=== PATIENT | male | born 1955 | race Two or more races ===

== ENCOUNTER 2024-05-31 12:46 | Emergency (ER) | payer OTHER ==
[~2024-05-31] VITALS: Ht 180.3 cm; Wt 113.6 kg
--- NOTE | 2024-05-31 14:00 | ED.PDOC ---
History of Present Illness HPI Comments 68 y/o M, with a history of DM, ESRD w/PD catheter, HTN, PTCA, and obesity, is BIBA for c/o penile pain, itchiness, and discharge, today. Per EMS report, patient endorses on having persisting symptoms since unprovoked onset on 05/20/24. Patient was commented to have been evaluated and discharged from [facility] with a topical "cream," that he endorses on having no relief or improvement of symptoms with use, during earlier duration of symptoms. He was also noted to have been found with a blood glucose of 229 and was given 1g Tylenol, with all remaining vitals being stable and within normal limits. He denies having any hematuria, fever, chills, or other associated symptoms or modifiers at time of initial assessment. Chief Complaint: Penile Problem Time Seen by MD: 13:20 Reviewed Notes: Nurses Notes, Aml Analyst Notes, Medications, Allergies Allergies: Coded Allergies: NO KNOWN ALLERGIES (Unverified , 05/31/24) Information Source: Patient, Emergency Med Personnel Mode of Arrival: EMS Severity: Moderate Timing: Days Duration: Since onset Prehospital treatment: 12 Lead EKG, Accucheck (229), Sap Hana Architect, Pain Meds (1g tylenol) Past Medical History PAST MEDICAL HISTORY: DM, ESRD, HTN Past Medical History (Other): obesity Surgical History: PTCA Surgical History (Other): PD catheter Family History Family History: Unknown Social History Smoker: Non-Smoker Alcohol: Denies ETOH Use Drugs: Denies Drug Use Lives In: Home Genitourinary: reports: penile discharge, pain (penile pain), others (penile itchiness ) All Other Systems: Reviewed and Negative (negative unless otherwise stated above or in HPI) Physical Exam General Appearance: No Apparent Distress, Obese HEENT: Normal ENT Inspection, Pharynx Normal, TMs Normal Neck: Full Range of Motion, Non-Tender, Normal, Normal Inspection Respiratory: Chest Non-Tender, Lungs Clear, No Accessory Muscle Use, No Respiratory Distress, Normal Breath Sounds Cardiovascular: No Edema, No JVD, No Murmur, No Gallop, Normal Peripheral Pulses, Regular Rate/Rhythm Breast Exam: Deferred Gastrointestinal: No Organomegaly, Non Tender, No Pulsatile Mass, Normal Bowel Sounds, Soft Genitalia: Penis (yellow fibrinous discharge, with distal tip of the penis eschar) Pelvic: Deferred Rectal: Deferred Extremities: No calf tenderness, Normal capillary refill, Normal inspection, Normal range of motion, Non-tender, No pedal edema Musculoskeletal : Apperance: Normal Neurologic: Alert, head refrigeration engineer II-XII nml as Tested, No Motor Deficits, Normal Affect, Normal Mood, No Sensory Deficits Cerebellar Function: Normal Reflexes: Normal Skin: Dry, Normal Color, Warm Lymphatic: No Adenopathy Was a procedure done? Was a procedure done?: No Differential Dx Considerations may include: STI's, UTI, urethritis, balanitis, Estelle's Gangrene, phimosis, paraphimosis X-Ray, Labs, Meds, VS Vital Signs Date Time Temp Pulse Resp B/P (MAP) Pulse Ox O2 Delivery O2 Flow Rate FiO2 05/31/24 18:23 97.2 68 12 104/59 (74) 97 97.2 05/31/24 17:09 67 16 97 Room Air* 0 21 05/31/24 16:36 67 16 97 Room Air 05/31/24 16:36 98.1 67 16 96/56 (69) 97 98.1 05/31/24 13:10 102.9 70 18 130/62 (84) 96 Lab Test 05/31/24 15:34 05/31/24 00:00 Range/Units White Blood Count 14.3 H 4.4-10.8 10^3/uL Red Blood Count 3.02 L 4.5-5.90 10^6/uL Hemoglobin 9.2 L 13.5-17.5 g/dL Hematocrit 28.8 L 41.0-53.0 % Mean Corpuscular Volume 95.5 80.0-100.0 fL Mean Corpuscular Hemoglobin 30.5 28.0-32.0 pg Mean Corpuscular Hemoglobin Concent 31.9 L 32.0-36.0 g/dL Red Cell Distribution Width 17.8 H 11.8-14.3 % Platelet Count 333 140-450 10^3/uL Mean Platelet Volume 9.5 6.9-10.8 fL Neutrophils (%) (Auto) 78.5 37.0-80.0 % Lymphocytes (%) (Auto) 7.3 L 10.0-50.0 % Monocytes (%) (Auto) 9.3 0.0-12.0 % Eosinophils (%) (Auto) 4.4 0.0-7.0 % Basophils (%) (Auto) 0.5 0.0-2.0 % Neutrophils # (Auto) 11.2 H 1.6-8.6 10 ^3/uL Lymphocytes # (Auto) 1.0 0.4-5.4 10 ^3/uL Monocytes # (Auto) 1.3 0-1.3 10 ^3/uL Eosinophils # (Auto) 0.6 0-0.8 10 ^3/uL Basophils # (Auto) 0.1 0-0.2 10 ^3/uL Nucleated Red Blood Cells 0.0 % Sodium Level 133 L 136-145 mmol/L Potassium Level 4.0 3.5-5.1 mmol/L Chloride Level 92 L 98-107 mmol/L Carbon Dioxide Level 25 20-31 mmol/L Anion Gap 16 H 5-15 Blood Urea Nitrogen 57 H 9-23 mg/dL Creatinine 9.58 H 0.700-1.30 mg/dL Glomerular Filtration Rate Calc 5 >90 mL/min BUN/Creatinine Ratio 5.9 L 10.0-20.0 Serum Glucose 186 H 74-106 mg/dL Calcium Level 7.1 L 8.7-10.4 mg/dL Influenza Type A Antigen Pending Influenza Type B Antigen Pending SARS-CoV-2 Antigen (Rapid) Pending Current Medications Medications (Trade) Dose Ordered Sig/Karen Route Start Time Stop Time Status Last Admin Piperacillin Sod/ Tazobactam Sod 50 ml @ 50 mls/hr ONCE ONCE IV 05/31/24 15:15 05/31/24 16:43 DC 05/31/24 17:02 Time of 1ST Reevaluation: 13:50 Reevaluation 1ST: Unchanged Time of 2ND Reevaluation: 15:18 Reevaluation 2ND: Unchanged (i updated [facility]#[id number], Dr Al) Time of 3RD Reevaluation: 17:08 Reevaluation 3RD: Unchanged (I updated Dr Al at [facility] again) Patient Education/Counseling: Diagnosis, Treatment Family Education/Counseling: No Family Present Additional Information - Additional information was gathered from interviewing the following independent 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 we attempted to call our urologist, without success to get a response pt does not have fourenier's gangrene, nor pneumonia, cellulitis. he has balanitis. i will start him on antibiotic, since antifungal has not helped Departure 1 Departure Time of Disposition: 18:52 Impression: Primary Impression: Balanitis Disposition: HOME / SELF CARE / HOMELESS Condition: Good e-Prescriptions Mupirocin Calcium (Topical) (MUPIROCIN) 2 % Cre 2 % EX BID, #1 CRE Prov: RAMSES SQUIRES MD 05/31/24 Discharged With: Self Critical Care Note Critical Care Time?: No Stability Stability form required: No Heart Score Heart Score: Heart Score Response (Comments) Value History N/A 0 EKG N/A 0 Age N/A 0 Risk Factors N/A 0 Troponin N/A 0 Total 0 I personally scribed for RAMSES SQUIRES MD ([email or web address]) on 05/31/24 at 14:00. Electronically submitted by Osbaldo rGay ([email or web address]). RAMSES SQUIRES MD May 31, 2024 14:00
[2024-05-31 16:02] LABS: Basophils # (auto) 0.1 10 ^3/uL (0-0.2); Basophils % (auto) 0.5 % (0.0-2.0); Eosinophils # (auto) 0.6 10 ^3/uL (0-0.8); Eosinophils % (auto) 4.4 % (0.0-7.0); Hematocrit 28.8 % (41.0-53.0); Hemoglobin 9.2 g/dL (13.5-17.5); Lymphocytes % (auto) 7.3 % (10.0-50.0); Mean Corpuscular Hemoglobin 30.5 pg (28.0-32.0); Mean Corpuscular Hgb Conc. 31.9 g/dL (32.0-36.0); Mean Corpuscular Volume 95.5 fL (80.0-100.0); Monocytes # (auto) 1.3 10 ^3/uL (0-1.3); Monocytes % (auto) 9.3 % (0.0-12.0); Neutrophils # (auto) 11.2 10 ^3/uL (1.6-8.6); Neutrophils % (auto) 78.5 % (37.0-80.0); Platelet Count (auto) 333 10^3/uL (140-450); Red Blood Cells 3.02 10^6/uL (4.5-5.90); Red Cell Distribution Width 17.8 % (11.8-14.3); White Blood Cell 14.3 10^3/uL (4.4-10.8)
[2024-05-31 16:08] LABS: Anion Gap 16 (5-15); Carbon Dioxide 25 mmol/L (20-31)
[2024-05-31 16:13] LABS: BUN/Creatinine Ratio 5.9 (10.0-20.0)
[2024-05-31 16:15] LABS: Blood Urea Nitrogen 57 mg/dL (9-23); Calcium 7.1 mg/dL (8.7-10.4); Chloride 92 mmol/L (98-107); Glucose 186 mg/dL (74-106); Sodium 133 mmol/L (136-145)
--- NOTE | 2024-05-31 16:58 | DVH ---
CHEST RADIOGRAPH Indication: LEUKOCYTOSIS Technique: Single frontal view of the chest was obtained Comparison: None FINDINGS: Lines and Tubes: None Lungs: No focal consolidation. Pleura: No effusion.No pneumothorax. Cardiomediastinal contours: Unremarkable Pulmonary vasculature: Within normal limits. Bones: No acute osseous abnormality. IMPRESSION: 1. No acute cardiopulmonary disease. HS:Y
[2024-05-31] MEDS: PIPERACILLIN-TAZOB 2.25GM 50 ML IV ONE (17:02)
--- NOTE | 2024-05-31 17:04 | DVH ---
Procedure: CT PELVIS WO CONTRAST 05/31/2024 04:35 PM Indication: R/O FOURNEIR'S Comparison Study: None Technique: Axial images were obtained and reformatted in coronal and sagittal planes. All CT scans at this medical facility are performed using dose modulation techniques as appropriate t o a performed exam including the following: Automated exposure control was utilized; adjustment of th e MA and/or KV according to patient size; and use of iterative reconstruction technique. CT Dose: CTDI volume is 24.65 mGy. Dose-length product is 1085.5 mGy*cm FINDINGS: No peroneal subcutaneous fat stranding, gas or foreign body seen. No hydrocele noted. There is mild s crotal wall thickening. Diffuse atherosclerotic calcification noted. Prostate is mildly enlarged. U rinary bladder is unremarkable. Scattered colonic diverticula are seen. A peritoneal dialysis gutierrez ter is coiled superior to the bladder. Subcutaneous fat stranding in the bilateral lower quadrant ab dominal wall reflecting injection sites. Transpedicular fixation noted in the lower lumbar spine luce ncy surrounding L5 screws reflecting loosening. There is laminectomy in the lower lumbar spine. IMPRESSION: 1. No CT evidence of gold gangrene. No signs of cellulitis, subcutaneous edema or soft tissue gas . 2. Advanced atherosclerotic disease.
[2024-05-31 17:09] VITALS: PULSE 67; RESP 16; O2SAT 97
[2024-05-31 18:23] VITALS: BP 104/59; PULSE 68; RESP 12; TEMP 97.2; O2SAT 97
[2024-05-31] MEDS ORDERED: MUPI2CRE17 EX (18:53)
[2024-05-31 19:19] LABS: COVID19 ANTIGEN SOFIA FIA NEGATIVE (NEGATIVE); Rapid Influenza A Negative (Negative); Rapid Influenza B Negative (Negative)
== END 2024-05-31 19:10 | disposition home or self-care (01) ==
LOC: EDBD 12:46 → ER 12:46
DX: N48.1 Balanitis (principal); I12.0 Hypertensive chronic kidney disease with stage 5 chronic kidney disease or end stage renal disease; E11.22 Type 2 diabetes mellitus with diabetic chronic kidney disease; N18.6 End stage renal disease; Z20.822 Contact with and (suspected) exposure to COVID-19
CPT/HCPCS: 36415; 71045; 72192; 80048; 85025; 87426; 87804; 96365; 99285; J2543